=== PATIENT | female | born 1995 | race Caucasian/White ===

== ENCOUNTER 2023-05-16 15:19 | Emergency (ER) | payer OTHER ==
[~2023-05-16] VITALS: Wt 77.1 kg
[~2023-05-16 15:19] MED LIST: DEPO PROVER150 MG/ML IM; MACROBID100 M1 PO; MOTRIN 400 MG E4 TAB PO; MOTRIN400 MG PO; MOTRIN600 MG PO; PREDNISONE20 MG PO; PREVACID15 MG PO; ZOFRAN ODT4 MG SL; ZYRTEC10 MG PO
[2023-05-16 15:55] VITALS: BP 127/90
[2023-05-16 17:38] LABS: BASO % 0.3 % (0.0-1.0); EOS # 0.1 10*3/uL (0.0-0.4); EOS % 1.4 % (1.0-4.0); HEMATOCRIT 27.5 % (37.0-47.0); LYMPH # 1.2 10*3/uL (1.3-4.4); MEAN CELL VOLUME 77.7 fl (81.0-99.0); MEAN CORPUSCULAR HGB 24.3 pg (27.0-31.0); MEAN CORPUSCULAR HGB CONC 31.3 g/dl (33.0-37.0); MEAN PLATELET VOLUME 10.9 fl (9.6-12.3); MONO # 0.6 10*3/uL (0.1-1.0); MONO % 7.8 % (3.0-9.0); NEUT # 5.3 10*3/uL (2.3-7.9); NEUT % 73.8 % (47.0-73.0); PLATELET COUNT AUTOMATED 275 10*3/uL (130-400); RED BLOOD COUNT 3.54 10*6/uL (4.10-5.10); RED CELL DISTRI WIDTH 16.4 % (0-14.5); WHITE BLOOD COUNT 7.2 10*3/uL (4.8-10.8)
[2023-05-16 17:58] LABS: ALKALINE PHOSPHATASE 282 U/L (46-116); BUN 6 mg/dl (9-23); CHLORIDE 106 mmol/L (98-107); POTASSIUM 3.2 mmol/L (3.4-5.1); SGPT/ALT 20 U/L (5-49); TOTAL PROTEIN 7.1 gm/dL (6.0-8.0)
[2023-05-16 18:07] LABS: BILIRUBIN Negative (Negative); BLOOD Negative (Negative); CLARITY Clear (Clear); COLOR Yellow (Yellow); GLUCOSE Negative (Negative); KETONE 2+ (Negative); LEUKO ESTERASE Trace (Negative); NITRITE Negative (Negative); PH 6.5 (4.5-8.0)
[2023-05-16 19:00] LABS: BACTERIA 2+
== END 2023-05-16 20:01 | disposition home or self-care (01) ==
LOC: ED 15:19
PROVIDERS: Nurse Practitioner Family
DX: O23.43 Unspecified infection of urinary tract in pregnancy, third trimester (principal); O36.8130 Decreased fetal movements, third trimester, not applicable or unspecified; N39.0 Urinary tract infection, site not specified; K21.9 Gastro-esophageal reflux disease without esophagitis; J45.909 Unspecified asthma, uncomplicated; Z88.1 Allergy status to other antibiotic agents; Z3A.40 40 weeks gestation of pregnancy